=== PATIENT | male | born 1990 | race Native Hawaiian/Other Pacific Islander ===

== ENCOUNTER 2017-07-31 02:00 | Emergency (ER) | payer BC, OTHER ==
--- NOTE | 2017-07-31 03:02 | ED PDOC ---
HPI: Psych/Substance Abuse Time Seen by Provider: 07/31/17 02:06 Chief Complaint (Nursing): Alcohol Ingestion Chief Complaint (Provider): Alcohol Intoxication History Per: Patient History/Exam Limitations: no limitations Onset/Duration Of Symptoms: Mins (just prior to arrival) Additional History Per: EMS Additional Complaint(s): 27 y/o [place] male, brought in by EMS, presents to the ED for alcohol intoxication. Patient's past medical, surgical, social, and family history, as well as review of systems, were limited secondary to the patient's unwillingness to answer the provider's question. Of note, the patient did admit to being an occasional drinker, but reports of no complaints. Past Medical History Reviewed: Historical Data, Nursing Documentation, Vital Signs, Unable To Obtain Vital Signs: Last Vital Signs Temp 97.3 F L 07/31/17 02:10 Pulse 115 H 07/31/17 02:10 Resp 18 07/31/17 02:10 BP 134/83 07/31/17 02:10 Pulse Ox 98 07/31/17 02:10 - Family History Family History: States: Unknown Family Hx - Social History Alcohol: Occasional - Allergies Allergies/Adverse Reactions: Allergies Allergy/AdvReac Type Severity Reaction Status Date / Time No Known Allergies Allergy Verified 07/31/17 02:10 Review of Systems ROS Statement: Except As Marked, All Systems Reviewed And Found Negative Review Of Systems: ROS cannot be obtained secondary to pt's inabilty to answer questions. (unwilling to answer questions wants to sleep) Physical Exam - Reviewed Nursing Documentation Reviewed: Yes Vital Signs Reviewed: Yes - Physical Exam Appears: Positive for: Non-toxic, No Acute Distress Head Exam: Positive for: ATRAUMATIC, NORMOCEPHALIC Skin: Positive for: Normal Color, Warm, DRY Eye Exam: Positive for: EOMI, Normal appearance, PERRL ENT: Positive for: Normal ENT Inspection Neck: Positive for: Normal, Painless ROM Cardiovascular/Chest: Positive for: Regular Rate, Rhythm. Negative for: Murmur Respiratory: Positive for: Normal Breath Sounds. Negative for: Respiratory Distress Gastrointestinal/Abdominal: Positive for: Normal Exam, Soft. Negative for: Tenderness Back: Positive for: Normal Inspection Extremity: Positive for: Normal ROM. Negative for: Pedal Edema, Deformity Neurologic/Psych: Positive for: Alert, Other (Slurred Speech). Negative for: Oriented - ECG O2 Sat by Pulse Oximetry: 98 (RA) Pulse Ox Interpretation: Normal Medical Decision Making Medical Decision Making: Time: --02:52 Impression: --27 y/o male with Alcohol Intoxication Plan: --alcohol serum --drug screen, urine --Accucheck Reassess ----time: 07:00 Patient to be signed out to Dr. Jon pending clinical sobriety. Scribe Attestation: Documented by Adrian Allen acting as a scribe for Mark Pinto MD. Provider Attestation: All medical record entries made by the Scribe were at my direction and personally dictated by me. I have reviewed the chart and agree that the record accurately reflects my personal performance of the history, physical exam, medical decision making, and the department course for this patient. I have also personally directed, reviewed, and agree with the discharge instructions and disposition. Disposition - Clinical Impression Clinical Impression: Alcohol abuse with intoxication - Patient ED Disposition Is Patient to be Admitted: Transfer of Care - Disposition Disposition Time: 07:00 (pending sobriety) Condition: FAIR Forms: [employer] (Bengali) Patient Signed Over To: Sharad Jon
--- NOTE | 2017-07-31 07:20 | ED PDOC ---
- ECG O2 Sat by Pulse Oximetry: 98 (RA) Pulse Ox Interpretation: Normal - Progress Re-evaluation Time: 07:26 Condition: Improved Medical Decision Making Medical Decision Making: Time: 07:00 --Patient signed out to me by Dr. Mark Pinto, pending clinical sobriety. Scribe Attestation: Documented by Alecia Cintron acting as a scribe for Sharad Jon MD. Provider Attestation: All medical record entries made by the Scribe were at my direction and personally dictated by me. I have reviewed the chart and agree that the record accurately reflects my personal performance of the history, physical exam, medical decision making, and the department course for this patient. I have also personally directed, reviewed, and agree with the discharge instructions and disposition. Disposition - Clinical Impression Clinical Impression: Alcohol abuse with intoxication - POA Present On Arrival: None - Disposition Referrals: [facility] [Outside] Disposition: Routine/Home Disposition Time: 07:26 Condition: FAIR Instructions: Alcohol Intoxication (ED) Forms: [employer] (Argentine)
[2017-07-31 07:57] VITALS: BP 118/80; PULSE 80; RESP 16; TEMP 98; O2SAT 100
== END 2017-07-31 07:57 | disposition home or self-care (01) ==
LOC: H.ER 02:00
DX: F10.129 Alcohol abuse with intoxication, unspecified (principal)